=== PATIENT | male | born 1960 | race American Indian/Alaskan Native ===

== ENCOUNTER 2016-08-17 01:25 | Inpatient (IN) | payer MEDICARE ==
[2016-08-17] MEDS ORDERED: NACL 0.9% 1000 ML 1,000 ML ONE (01:43)
[2016-08-17] MEDS ORDERED: SandoSTATIN 500 MCG in NACL 0.9% 100 ML IV ONE (01:48)
[2016-08-17] MEDS ORDERED: PROTONIX IV ONE (01:48)
[2016-08-17] MEDS ORDERED: NACL 0.9% 1000 ML 1,000 ML IV ONE (01:56)
[2016-08-17] MEDS ORDERED: PROTONIX 80 MG in NACL 0.9% 100 ML IV SCH (02:00)
--- NOTE | 2016-08-17 02:12 | Emergency Department Report ---
HPI - General Chief Complaint: GI Bleed Time Seen by Provider: 08/17/16 01:47 - HPI HPI: Room 22 The patient is a 56-year-old male presenting with a chief complaint of hematemesis. The patient states his symptoms began at 20:00 with 3-4 episodes of bright red hematemesis. The patient states he then had a bowel movement in his stool was black. The patient has not vomited since coming to the ED. The patient has a history of hepatitis C and cirrhosis was admitted to the hospital recently by myself for paracentesis of ascites Location: Gastro-Intestinal system Duration: Started at 20:00 Quality: Hematemesis Severity: Moderate Modifying factors: [see above] Context: [see above] Mode of transportation: [not driving] ED Past Medical Hx - Past Medical History Previous Medical History?: Yes Hx Hypertension: Yes Hx CVA: Yes Hx Liver Disease: Yes (hep c and possible cirrhosis) Additional medical history: Sleep Apnea, PTSD. ETOH abuse. daily smoker - Surgical History Past Surgical History?: Yes Additional Surgical History: tonsillectomy. rt leg [id number] - Family History Family history: no significant - Social History Smoking Status: Current Every Day Smoker Substance Use Type: Alcohol, Prescribed - Medications Home Medications: Home Medications Medication Instructions Recorded Confirmed Last Taken Type Folic Acid [Folvite] 1 mg PO DAILY #30 tablet 07/28/16 08/12/16 08/11/16 Rx Megestrol Acetate [Megace] 400 mg PO DAILY #30 oral.susp 07/28/16 08/12/1608/11 Rx Mirtazapine 30 mg PO QHS #30 tablet 07/28/16 08/12/16 08/11/16 Rx NIFEdipine XL [Procardia Xl] 90 mg PO QDAY #30 tablet 07/28/16 08/12/16 Rx Polyethylene Glycol 3350 [Miralax 17 gm PO QDAY #30 powd.pack 07/28/16 08/12/16 08/11/16 Rx 3350] Potassium Chloride [K-Dur] 20 meq PO QDAY #30 tablet 07/28/16 08/12/16 08/11/16 Rx Sertraline HCl [Zoloft] 100 mg PO QDAY #30 tablet 07/28/16 08/12/16 08/11/16 Rx Spironolactone [Aldactone] 1 tab PO DAILY #30 tablet 07/28/16 08/12/16 08/11/16 Rx Trazodone HCl 100 mg PO QHS #30 tablet 07/28/16 08/12/16 08/11/16 Rx hydrOXYzine PAMOATE [Vistaril] 1 cap PO QHS #30 capsule 07/28/16 08/12/16 Rx Nicotine [Habitrol] 14 mg TD Q24H #21 patch 08/13/16 Unknown Rx oxyCODONE /ACETAMINOPHEN [Percocet 1 tab PO Q4HR #10 tab 08/13/16 Unknown Rx 5/325 mg] ED Review of Systems ROS: Stated complaint: VOMITING BLOOD Other details as noted in HPI Comment: All other systems reviewed and negative Constitutional: denies: chills, fever Eyes: denies: eye pain, eye discharge, vision change ENT: denies: ear pain, throat pain Respiratory: denies: cough, shortness of breath, wheezing Cardiovascular: denies: chest pain, palpitations Endocrine: no symptoms reported Gastrointestinal: nausea, vomiting, hematemesis, melena Genitourinary: denies: urgency, dysuria Musculoskeletal: denies: back pain, joint swelling, arthralgia Skin: denies: rash, lesions Neurological: denies: headache, weakness, paresthesias Psychiatric: denies: anxiety, depression Hematological/Lymphatic: denies: easy bleeding, easy bruising Physical Exam - Physical Exam Vital Signs: Vital Signs 08/17/16 08/17/16 08/17/16 01:35 01:39 01:45 Temperature 97.9 F Pulse Rate 99 H 100 H 101 H Respiratory 20 19 22 Rate Blood Pressure 85/52 95/45 Blood Pressure 85/52 [Left] O2 Sat by Pulse 100 100 100 Oximetry Physical Exam: GENERAL: The patient is well-developed well-nourished male lying on stretcher in position not appearing to be in acute distress. [] HEENT: Normocephalic. Atraumatic. Extraocular motions are intact. Patient has moist mucous membranes. NECK: Supple. Trachea midline CHEST/LUNGS: Clear to auscultation. There is no respiratory distress noted. HEART/CARDIOVASCULAR: Regular. There is no tachycardia. There is no gallop rub or murmur. ABDOMEN: Abdomen is soft, nontender. Patient has normal bowel sounds. SKIN: There is no rash. There is no diaphoresis. NEURO: The patient is awake, alert, and oriented. The patient is cooperative. The patient has normal speech MUSCULOSKELETAL: There is no evidence of acute injury. RECTAL: ED Course Vital Signs 08/17/16 08/17/16 08/17/16 01:35 01:39 01:45 Temperature 97.9 F Pulse Rate 99 H 100 H 101 H Respiratory 20 19 22 Rate Blood Pressure 85/52 95/45 Blood Pressure 85/52 [Left] O2 Sat by Pulse 100 100 100 Oximetry - Reevaluation(s) Reevaluation #1: 08/17/16 03:44 CBC has not been resulted yet. I discussed this with lab and they state that the sample was clotted. Phlebotomy was notified to redraw. I spoke to phlebotomy personally and expressed the urgent need for results. Phlebotomy en route to patient's room 08/17/16 04:16 After I go directly to lab when able to obtain the results of the redraw CBC which reveals an H&H of 4.9/16.0 08/17/16 04:26 Patient reportedly had an episode of hematemesis in the ED which appeared like coffee grounds. There was no bright red blood reported - Consultations Consultation #1: 08/17/16 04:16 GI paged 08/17/16 04:[address] Sanabria- states he will notify the GI lab ED Medical Decision Making - Lab Data Result diagrams: 08/17/16 03:41 08/17/16 02:17 Laboratory Tests 08/17/16 08/17/16 02:17 03:41 WBC 12.1 H RBC 1.89 L Hgb 4.9 L* Hct 16.0 L* MCV 85 MCH 26 L MCHC 31 L RDW 15.9 H Plt Count 192 Lymph % (Auto) 13.1 L [place] % (Auto) 10.4 H Eos % (Auto) 0.2 Baso % (Auto) 0.3 Lymph # 1.6 [place] # 1.3 H Eos # 0.0 Baso # 0.0 Seg Neutrophils % 76.0 H Seg Neutrophils # 9.2 H Sodium 135 L Potassium 5.5 H D Chloride 103.0 Carbon Dioxide 8 L* D Anion Gap 30 BUN 39 H Creatinine 1.7 H D Estimated GFR 50 BUN/Creatinine Ratio 22.94 Glucose 129 H Calcium 7.0 L Total Bilirubin 0.90 AST 39 ALT 21 Alkaline Phosphatase 41 Total Protein 5.2 L Albumin 1.8 L Albumin/Globulin Ratio 0.5 Lipase 17 - EKG Data -: EKG Interpreted by Me EKG shows normal: sinus rhythm Rate: normal - EKG Data When compared to previous EKG there are: previous EKG unavailable - Differential Diagnosis esophageal varices, upper GI bleed Critical Care Time: Yes Critical care time in (mins) excluding proc time.: 35 Critical care attestation.: If time is entered above; I have spent that time in minutes in the direct care of this critically ill patient, excluding procedure time. ED Disposition Clinical Impression: Upper GI bleed, Hypovolemic shock Disposition: OP ADMIT IP TO THIS HOSP Is pt being admited?: Yes Does the pt Need Aspirin: No Condition: Serious Referrals: PRIMARY CARE, [Primary Care Provider] - 3-5 Days Forms: Accompanied Note Time of Disposition: 04:25
[2016-08-17] MEDS ORDERED: ZOFRAN ONE (02:36)
[2016-08-17 03:08] LABS: Albumin 1.8 g/dL (3.9-5); Albumin/Globulin Ratio 0.5 %; BUN/Creatinine Ratio 22.94; Bilirubin,Total 0.9 mg/dL (0.1-1.2); Potassium 5.5 mmol/L (3.6-5.0); Total Protein 5.2 g/dL (6.3-8.2)
[2016-08-17 04:11] LABS: Basophils % (Auto) 0.3 % (0.0-1.8); Eosinophils % (Auto) 0.2 % (0.0-4.3); Mean Corpuscular HGB Conc 31 % (32-34); Mean Corpuscular Volume 85 fl (84-94); Platelet Count 192 K/mm3 (140-440); Red Blood Count 1.89 M/mm3 (3.65-5.03); Red Cell Distribution Width 15.9 % (13.2-15.2); White Blood Count 12.1 K/mm3 (4.5-11.0)
[2016-08-17 04:14] LABS: Hemoglobin 4.9 gm/dl (11.8-15.2)
[2016-08-17] MEDS ORDERED: NACL 0.9% 500 ML 500 ML IV ONE (04:14)
[2016-08-17 04:15] LABS: Mean Corpuscular Hemoglobin 26 pg (28-32)
[2016-08-17] MEDS ORDERED: ZOFRAN IV ONE ×2 (04:21→04:23)
[2016-08-17 04:38] LABS: INR 2.17 (0.87-1.13)
[2016-08-17] MEDS ORDERED: ZOFRAN IV PRN (05:09)
--- NOTE | 2016-08-17 05:23 | History and Physical Report ---
History of Present Illness Date of examination: 08/17/16 Date of admission: 08/17/16 Chief complaint: Chief complaint is hematemesis other complaint include abdominal pain and black stool History of present illness: History of present illness, patient is a 56-year-old male who has been having hematemesis since yesterday and also noticed dark stool but there was also history of abdominal pain and no history of dizziness and patient also complaining of shortness of breath. She and is known to abuse alcohol has history of cirrhosis of the liver but there is no history of fever or chills Past History Past Medical History: hypertension, stroke, other (HEPATITIS C, SLEEP APNEA, PTSD) Past Surgical History: tonsillectomy Social history: smoking, alcohol abuse Family history: no significant family history Medications and Allergies Allergies Allergy/AdvReac Type Severity Reaction Status Date / Time Penicillins Allergy Unknown Verified 06/21/14 18:05 Home Medications Medication Instructions Recorded Confirmed Last Taken Type Folic Acid [Folvite] 1 mg PO DAILY #30 tablet 07/28/16 08/12/16 08/11/16 Rx Megestrol Acetate [Megace] 400 mg PO DAILY #30 oral.susp 07/28/16 08/12/1608/11 Rx Mirtazapine 30 mg PO QHS #30 tablet 07/28/16 08/12/16 08/11/16 Rx NIFEdipine XL [Procardia Xl] 90 mg PO QDAY #30 tablet 07/28/16 08/12/16 Rx Polyethylene Glycol 3350 [Miralax 17 gm PO QDAY #30 powd.pack 07/28/16 08/12/16 08/11/16 Rx 3350] Potassium Chloride [K-Dur] 20 meq PO QDAY #30 tablet 07/28/16 08/12/16 08/11/16 Rx Sertraline HCl [Zoloft] 100 mg PO QDAY #30 tablet 07/28/16 08/12/16 08/11/16 Rx Spironolactone [Aldactone] 1 tab PO DAILY #30 tablet 07/28/16 08/12/16 08/11/16 Rx Trazodone HCl 100 mg PO QHS #30 tablet 07/28/16 08/12/16 08/11/16 Rx hydrOXYzine PAMOATE [Vistaril] 1 cap PO QHS #30 capsule 07/28/16 08/12/16 Rx Nicotine [Habitrol] 14 mg TD Q24H #21 patch 08/13/16 Unknown Rx oxyCODONE /ACETAMINOPHEN [Percocet 1 tab PO Q4HR #10 tab 08/13/16 Unknown Rx 5/325 mg] Active Meds: Active Medications Octreotide Acetate 500 mcg/ (Sodium Chloride) 101 mls @ 10.1 mls/hr IV ONCE.ED ONE; 50 MCG/HR PRN Reason: Protocol Stop: 08/17/16 11:47 Last Admin: 08/17/16 02:57 Dose: 25 mcg/hr, 5.05 mls/hr Pantoprazole Sodium 80 mg/ (Sodium Chloride) 100 mls @ 10 mls/hr IV DIRECT SAMUEL PRN Reason: 8 MG/HR Last Admin: 08/17/16 03:12 Dose: 8 mg/hr, 10 mls/hr Sodium Chloride (Nacl 0.9% 1000 Ml) 1,000 mls @ 125 mls/hr IV DIRECT SAMUEL Ondansetron HCl (Zofran) 4 mg IV Q4H PRN PRN Reason: Nausea And Vomiting Review of Systems Constitutional: no weight loss, no weight gain, no fever, no chills, no sweats, no anorexia, no fatigue, no weakness, no malaise, no lethargy, no poor appetite , no daytime sleepiness, no chronic pain Eyes: bilateral: other (NO BILATERAL EYE SYMPTOMS) Ears, nose, mouth and throat: no ear pain, no ear discharge, no decreased hearing, no nose pain, no nasal congestion, no nasal discharge, no sinus pressure, no bleeding gums, no dental pain, no mouth pain, no dysphagia, no hoarseness, no sore throat, no swelling in mouth, no swelling in throat, no voice changes, no post-nasal drip, no headache, no vertigo, no pain front of neck, no neck lump Cardiovascular: shortness of breath, no chest pain, no orthopnea, no palpitations, no rapid/irregular heart beat, no edema, no syncope, no lightheadedness, no dyspnea on exertion, no claudication, no phlebitis, no high blood pressure, no leg edema, no decreased exercise tolerance Respiratory: no cough, no cough with sputum, no excessive sputum, no hemoptysis , no shortness of breath, no congestion, no wheezing, no pleurisy, no pain, no pain on inspiration, no sleep apnea, no respiratory infections, no home oxygen Gastrointestinal: abdominal pain, nausea, hematemesis, melena, no jaundice, no dyspepsia/bloating, no lactose intolerance Genitourinary Male: no dysuria, no hematuria, no flank pain, no discharge, no urinary frequency, no urinary hesitancy, no impotence, no decreased libido, no testicular pain, no testicular lump, no polyuria, no urinary retention Rectal: no pain, no incontinence, no bleeding, no itching, no hemorrhoids, no discharge, no flatulence, no other Musculoskeletal: no neck stiffness, no neck pain, no shooting arm pain, no arm numbness/tingling, no low back pain, no shooting leg pain, no leg numbness/ tingling, no hot joints, no morning stiffness, no muscle weakness, no muscle cramps, no myalgias, no atrophy, no limitation of motion, no frequent falls, no fractures, no loss of height, no prior amputations Integumentary: no rash, no pruritis, no redness, no sores, no wounds, no jaundice, no boils, no blisters, no growths, no bullae, no lesions, no darkening of skin, no depigmentation, no acne, no dryness, no color changes, no change in hair/nails, no brittle nails, no striae, no hirsutism, no foot/leg ulcers, no onychomycosis Neurological: no paralysis, no weakness, no parathesias, no numbness, no tingling, no seizures, no syncope, no tremors, no ataxia, no headaches, no migraines, no convulsions, no aphasia, no change in speech, no change in mentation, no confusion, no memory loss, no gait dysfunction, no motor disturbance, no sensory deficit, no double vision, no loss of vision, no hearing difficulties, no burning pain, no paralysis, no spasticity Psychiatric: no anxiety, no memory loss, no change in sleep habits, no sleep disturbances, no insomnia, no hypersomnia, no change in appetite, no change in libido, no suicidal ideation, no disorientation, no paranoia, no depression, no hopelessness, no anhedonia, no anxiety attacks, no difficulties concentrating, no confusion, no irritability, no sadness/tearfullness, no mood swings Endocrine: no cold intolerance, no heat intolerance, no polyphagia, no excessive thirst, no polydipsia, no polyuria, no nocturia, no excessive sweating , no flushing, no increase in ring/shoe/hat size, no proptosis, no deepening of the voice, no thyroid mass, no palpatations, no high blood sugars, no low blood sugars Hematologic/Lymphatic: no easy bruising, no easy bleeding, no lymphadenopathy, no lymphedema, no thrombophilia Allergic/Immunologic: no urticaria, no allergic rhinitis, no persistent infections, no anaphylaxis, no gluten intolerance, no seasonal allergies Exam - Constitutional Vitals: Temp Pulse Resp BP Pulse Ox 97.4 F L 90 18 80/44 100 08/17/16 05:14 08/17/16 05:14 08/17/16 05:14 08/17/16 05:14 08/17/16 05:14 General appearance: Present: mild distress - EENT Eyes: Present: PERRL, EOM intact. Absent: irregular pupil, conjunctival injection, mydriasis ENT: hearing intact, clear oral mucosa, no oropharyngeal erythema, no poor dentition, no edentulous - Neck Neck: Present: supple, normal ROM. Absent: enlarged thyroid, masses or JVD, carotid bruits - Respiratory Respiratory effort: normal - Cardiovascular Rhythm: regular Heart Sounds: Present: S1 & S2. Absent: gallop, systolic murmur, diastolic murmur, rub, click - Extremities Extremities: no ischemia, No edema Peripheral Pulses: within normal limits - Abdominal General gastrointestinal: Present: soft, tender, distended, normal bowel sounds. Absent: non-tender, non-distended, rigid, hepatomegaly, splenomegaly, mass, hernia Localized gastrointestinal: tender: diffuse Male genitourinary: Present: deferred - Rectal Rectal Exam: deferred - Integumentary Integumentary: Present: clear, warm, dry, normal turgor. Absent: erythema, jaundice, rash, clammy - Musculoskeletal Musculoskeletal: strength equal bilaterally - Psychiatric Psychiatric: appropriate mood/affect - Neurologic Neurologic: CNII-XII intact Results - Labs CBC & Chem 7: 08/17/16 03:41 08/17/16 02:17 Labs: Laboratory Last Values WBC 12.1 K/mm3 (4.5-11.0) H 08/17/16 03:41 RBC 1.89 M/mm3 (3.65-5.03) L 08/17/16 03:41 Hgb 4.9 gm/dl (11.8-15.2) L* 08/17/16 03:41 Hct 16.0 % (35.5-45.6) L* 08/17/16 03:41 MCV 85 fl (84-94) 08/17/16 03:41 MCH 26 pg (28-32) L 08/17/16 03:41 MCHC 31 % (32-34) L 08/17/16 03:41 RDW 15.9 % (13.2-15.2) H 08/17/16 03:41 Plt Count 192 K/mm3 (140-440) 08/17/16 03:41 Lymph % (Auto) 13.1 % (13.4-35.0) L 08/17/16 03:41 [place] % (Auto) 10.4 % (0.0-7.3) H 08/17/16 03:41 Eos % (Auto) 0.2 % (0.0-4.3) 08/17/16 03:41 Baso % (Auto) 0.3 % (0.0-1.8) 08/17/16 03:41 Lymph # 1.6 K/mm3 (1.2-5.4) 08/17/16 03:41 [place] # 1.3 K/mm3 (0.0-0.8) H 08/17/16 03:41 Eos # 0.0 K/mm3 (0.0-0.4) 08/17/16 03:41 Baso # 0.0 K/mm3 (0.0-0.1) 08/17/16 03:41 Seg Neutrophils % 76.0 % (40.0-70.0) H 08/17/16 03:41 Seg Neutrophils # 9.2 K/mm3 (1.8-7.7) H 08/17/16 03:41 PT 24.2 Sec. (12.2-14.9) H 08/17/16 03:41 INR 2.17 (0.87-1.13) H 08/17/16 03:41 APTT 35.0 Sec. (24.2-36.6) 08/17/16 03:41 Sodium 135 mmol/L (137-145) L 08/17/16 02:17 Potassium 5.5 mmol/L (3.6-5.0) H D 08/17/16 02:17 Chloride 103.0 mmol/L (98-107) 08/17/16 02:17 Carbon Dioxide 8 mmol/L (22-30) L* D 08/17/16 02:17 Anion Gap 30 mmol/L 08/17/16 02:17 BUN 39 mg/dL (9-20) H 08/17/16 02:17 Creatinine 1.7 mg/dL (0.8-1.5) H D 08/17/16 02:17 Estimated GFR 50 ml/min 08/17/16 02:17 BUN/Creatinine Ratio 22.94 % 08/17/16 02:17 Glucose 129 mg/dL (75-100) H 08/17/16 02:17 Calcium 7.0 mg/dL (8.4-10.2) L 08/17/16 02:17 Total Bilirubin 0.90 mg/dL (0.1-1.2) 08/17/16 02:17 AST 39 units/L (5-40) 08/17/16 02:17 ALT 21 units/L (7-56) 08/17/16 02:17 Alkaline Phosphatase 41 units/L (35-129) 08/17/16 02:17 Total Protein 5.2 g/dL (6.3-8.2) L 08/17/16 02:17 Albumin 1.8 g/dL (3.9-5) L 08/17/16 02:17 Albumin/Globulin Ratio 0.5 % 08/17/16 02:17 Lipase 17 units/L (13-60) 08/17/16 02:17 Blood Type O POSITIVE 08/17/16 03:54 Antibody Screen TNR 08/17/16 03:54 KRISTIN Antibody Screen Negative 08/17/16 03:54 Crossmatch See Detail 08/17/16 03:54 Assessment and Plan - Patient Problems (1) Anemia Current Visit: Yes Status: Acute Qualifiers: Anemia type: A Iron deficiency anemia type: I Vitamin B12 deficiency anemia type: V Folate deficiency anemia type: F Bone marrow failure anemia type: B Hemolytic anemia type: H Other causes of anemia: O Chronic kidney disease stage: C (2) Upper GI bleed Current Visit: Yes Status: Acute Plan to address problem: Patient will be admitted to ICU and will remain nothing by mouth for possible endoscopy by the consulting business management professor Dr. Sanabria this morning, patient will continue IV Protonix drip which was started in the emergency room. Patient will have hemoglobin and hematocrit checked every 6 hours 4 levels and will be on IV normal saline at 125 minutes an hour until the transfusion of packed red blood cell is started. Patient will also continue IV octreotide started in the emergency room until evaluated by the business management professor, patient will be on oxygen by nasal cannula at 2 L/m. (3) Abdominal pain in male Current Visit: No Status: Acute (4) Alcohol abuse Current Visit: No Status: Acute
[2016-08-17] MEDS ORDERED: NACL 0.9% 1000 ML 1,000 ML IV SCH (06:00)
[2016-08-17] MEDS ORDERED: WATER FOR IRRIG STERILE IR ONE (06:03)
--- NOTE | 2016-08-17 06:55 | Anesthesia Consultation ---
Anesthesia Consult and Med Hx Date of service: 08/17/16 - Airway Anesthetic Teeth Evaluation: Good ROM Head & Neck: Adequate Mental/Hyoid Distance: Adequate Mallampati Class: Class II Intubation Access Assessment: Probably Good - Pulmonary Exam CTA: Yes - Cardiac Exam Cardiac Exam: RRR - Pre-Operative Health Status ASA Pre-Surgery Classification: ASA3, Emergency Proposed Anesthetic Plan: General, MAC - Pulmonary Hx Smoking: Yes Hx Asthma: No COPD: No Hx Pneumonia: No - Cardiovascular System Hx Hypertension: Yes - Endocrine Hx Renal Disease: Yes (ARF, CR 1.7) Hx End Stage Renal Disease: No Hx Cirrhosis: Yes Hx Liver Disease: Yes (HEP C) - Hematic Hx Anemia: Yes (GI BLEED) - Other Systems Hx Cancer: No Hx Obesity: No - Additional Comments Anesthesia Medical History Comments: POTASSIUM 5.5, RECEIVED 2 UNITS RBCS FOR ANEMIA. WILL RECEIVE 1 UNIT FFP FOR ELEVATED INR.
[2016-08-17] MEDS ORDERED: DIPRIVAN 10 MG/ML IV ONE ×2 (06:58)
--- NOTE | 2016-08-17 07:34 | Admit Criteria Form ---
Admission Criteria Documentation: GASTROINTESTINAL BLEEDING, UPPER Clinical Indications for Admission to Inpatient Care ( Place 'X' for any and all applicable criteria): Admission is indicated for ANY ONE of the following(1)(2)(3)(4)(5)(6): [X]I. Active bleeding (eg, fresh voluminous blood in emesis or nasogastric aspirate) [ ]II. Associated conditions requiring hospitalization (eg, perforation, obstruction from ulcer) [ ]III. Inpatient admission required rather than observation care (Also use Gastrointestinal Bleeding, Upper: Observation Care as appropriate) because of ANY ONE of the following: [ ]a) Hemodynamic instability that is severe or persistent [ ]b) Anemia requiring inpatient admission as indicated by ALL of the following: [ ]1) Presence of significant clinical finding indicated by ANY ONE of the following: [ ]A. Tachycardia for age [ ]B. Orthostatic vital sign changes [ ]C. Cognitive impairment [ ]D. Heart failure [ ]E. Chest pain [ ]F. Exertional dyspnea [ ]G. Other findings suggesting inadequate perfusion (eg, peripheral or myocardial ischemia, end organ dysfunction) [ ]2) Initial (eg, emergency department, observation care) treatment with transfusion or volume replacement is judged inappropriate (due to severity of the finding) or has been ineffective [ ]c) Severe pain requiring acute inpatient management [ ]d) High-risk low platelet count [ ]e) IV fluid to replace significant ongoing losses (greater than 3 L/m2 per day) [ ]f) Immediate inpatient surgery [ ]g) Other condition, treatment or monitoring requiring inpatient admission [ ]IV. Severe liver disease (eg, cirrhosis) [ ]V. Significant active comorbid disease [ ]. Anticoagulation therapy [ ]VII. High-risk endoscopic features (arterial bleeding, adherent clot, nonbleeding visible vessel, varices, flat red spots, ulcer size greater than 2 cm, or portal hypertensive gastropathy) [ ]VIII. Previous aortic graft placement or known aortic aneurysm [ ]IX. Coagulopathy [ ]X. Syncope Extended stay beyond goal length of stay may be needed for(1)(2): [ ]a) Emergency surgery [ ]b) Varices [ ]c) Coagulation abnormalities [ ]d) Recurrent, obscure, or persistent bleeding or continued Hemodynamic instability [ ]e) Associated conditions requiring surgery (eg, perforated gastric ulcer, gastric outlet obstruction) [ ]f) Active comorbidities (eg, renal insufficiency, heart failure, pre- existing liver disease) The original [facility] [employer] content created by [facility] has been revised. The portions of the content which have been revised are identified through the use of italic text or in bold, and [facility] has neither reviewed nor approved the modified material. All other unmodified content is copyright [facility] [id number]. Please see references footnoted in the original [facility] [id number] edition 2016 Admission Criteria Met: Yes
--- NOTE | 2016-08-17 07:48 | Consultation ---
History of Present Illness - Reason for Consult Consult date: 08/17/16 Hematemesis - History of Present Illness 56 yo BM with hx of HCV, cirrhosis, and EtOH abuse which he states he quit 1 month ago. Pt was admitted recently and underwent his first paracentesis. He notes his abd has felt a little tight. He was o/w well until early this AM, when he developed hematemesis, and then had a black BM. He has had 3 episodes of hematemesis, none x 3-4 hours. No further BMs. He denies prior hx of GI bleed. No abd pain. No hx of ASA/NSAID use. BMs usu regular, qd, no change. No F/C/NS, CP, SOB. In ER, pt has received 2u pRBC, and 2u FFP. Past History Past Medical History: hypertension, stroke, other (HEPATITIS C, SLEEP APNEA, PTSD) Past Surgical History: tonsillectomy Social history: smoking, alcohol abuse Family history: no significant family history Medications and Allergies Allergies Allergy/AdvReac Type Severity Reaction Status Date / Time Penicillins Allergy Unknown Verified 06/21/14 18:05 Home Medications Medication Instructions Recorded Confirmed Last Taken Type Folic Acid [Folvite] 1 mg PO DAILY #30 tablet 07/28/16 08/17/16 08/11/16 Rx Megestrol Acetate [Megace] 400 mg PO DAILY #30 oral.susp 07/28/16 08/17/1608/11 Rx Mirtazapine 30 mg PO QHS #30 tablet 07/28/16 08/17/16 08/11/16 Rx NIFEdipine XL [Procardia Xl] 90 mg PO QDAY #30 tablet 07/28/16 08/17/16 Rx Polyethylene Glycol 3350 [Miralax 17 gm PO QDAY #30 powd.pack 07/28/16 08/17/16 08/11/16 Rx 3350] Potassium Chloride [K-Dur] 20 meq PO QDAY #30 tablet 07/28/16 08/17/16 08/11/16 Rx Sertraline HCl [Zoloft] 100 mg PO QDAY #30 tablet 07/28/16 08/17/16 08/11/16 Rx Spironolactone [Aldactone] 1 tab PO DAILY #30 tablet 07/28/16 08/17/16 08/11/16 Rx Trazodone HCl 100 mg PO QHS #30 tablet 07/28/16 08/17/16 08/11/16 Rx hydrOXYzine PAMOATE [Vistaril] 1 cap PO QHS #30 capsule 07/28/16 08/17/16 Rx Nicotine [Habitrol] 14 mg TD Q24H #21 patch 08/13/16 08/17/16 Unknown Rx oxyCODONE /ACETAMINOPHEN [Percocet 1 tab PO Q4HR #10 tab 08/13/16 08/17/16 Unknown Rx 5/325 mg] Active Meds: Active Medications Octreotide Acetate 500 mcg/ (Sodium Chloride) 101 mls @ 10.1 mls/hr IV ONCE.ED ONE; 50 MCG/HR PRN Reason: Protocol Stop: 08/17/16 11:47 Last Admin: 08/17/16 02:57 Dose: 25 mcg/hr, 5.05 mls/hr Pantoprazole Sodium 80 mg/ (Sodium Chloride) 100 mls @ 10 mls/hr IV DIRECT SAMUEL PRN Reason: 8 MG/HR Last Admin: 08/17/16 03:12 Dose: 8 mg/hr, 10 mls/hr Sodium Chloride (Nacl 0.9% 1000 Ml) 1,000 mls @ 125 mls/hr IV DIRECT SAMUEL Ondansetron HCl (Zofran) 4 mg IV Q4H PRN PRN Reason: Nausea And Vomiting Review of Systems All systems: negative (as noted in HPI) Exam - Constitutional Vitals: Temp Pulse Resp BP Pulse Ox 97.7 F 91 H 19 106/52 100 08/17/16 06:15 08/17/16 06:45 08/17/16 06:45 08/17/16 06:45 08/17/16 06:45 General appearance: Present: no acute distress - EENT Eyes: Present: PERRL, EOM intact ENT: hearing intact, clear oral mucosa - Respiratory Respiratory effort: normal Respiratory: bilateral: CTA - Cardiovascular Rhythm: regular Heart Sounds: Present: S1 & S2 - Extremities Extremities: No edema - Abdominal General gastrointestinal: Present: soft, non-tender, distended (Mildly), normal bowel sounds - Rectal Rectal Exam: deferred Results - Labs CBC & Chem 7: 08/17/16 03:41 08/17/16 02:17 Assessment and Plan 1. Hematemesis - c/w variceal bleed vs. PUD. Pt on octreotide and PPI drip. - emergency EGD to dx and tx. 2. 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
--- NOTE | 2016-08-17 07:51 | Anesthesia Day of Surgery ---
Anesthesia Day of Surgery - Day of Surgery Patient Examined: Yes Patient H&P Reviewed: Yes Patient is NPO: Yes
--- NOTE | 2016-08-17 07:51 | Post Anesthesia Evaluation ---
- Post Anesthesia Evaluation Patient Participated: Yes Airway Patent: Yes Stable Respiratory Function: Yes Nausea/Vomiting: No Temp > 96.8F: Yes Pain Manageable: Yes Adequeate Hydration: Yes Anesthesia Complications: No Block Receding Appropriately: Not Applicable Patient on Ventilator: No
--- NOTE | 2016-08-17 08:02 | Post Operative Note ---
Pre-op diagnosis: Hematemesis Post-op diagnosis: other (Esophageal varices with stigmata of bleeding) Findings: 1. Distal esophageal varices, 3+, one with a fibrin plug located on it. No active bleeding. 4 variceal bands applied. 2. Normal gastric antrum and duodenum. 3. Remainder of body not visualized due to presence of old blood and clot in stomach. Procedure: EGD with variceal banding Anesthesia: MAC Surgeon: KRISTIN URBINA Estimated blood loss: none Pathology: none Condition: stable Disposition: ICU (Continue octreotide drip for 48 hrs, monitor H/H and support as needed.)
[2016-08-17] MEDS ORDERED: MIRALAX 3350 PO PRN (10:50)
[2016-08-17] MEDS ORDERED: VITAMIN K *ORAL LIQUID PO SCH (11:00)
--- NOTE | 2016-08-17 11:13 | Consultation ---
History of Present Illness - Reason for Consult Consult date: 08/17/16 Variceal Bleed Requesting physician: KRISTIN URBINA - History of Present Illness 56 y/o male with known Hep C, cirrhosis and ETOH abuse, recently found to have ascities admitted with GI bleed. Scoped this am and found to have varices. None actively bleeding. 4 of them banded. Transfer to ICU for further monitoring. Past History Past Medical History: hypertension, stroke, other (HEPATITIS C, SLEEP APNEA, PTSD) Past Surgical History: tonsillectomy Social history: smoking, alcohol abuse Family history: no significant family history Medications and Allergies Allergies Allergy/AdvReac Type Severity Reaction Status Date / Time Penicillins Allergy Unknown Verified 06/21/14 18:05 Home Medications Medication Instructions Recorded Confirmed Last Taken Type Folic Acid [Folvite] 1 mg PO DAILY #30 tablet 07/28/16 08/17/16 08/11/16 Rx Megestrol Acetate [Megace] 400 mg PO DAILY #30 oral.susp 07/28/16 08/17/1608/11 Rx Mirtazapine 30 mg PO QHS #30 tablet 07/28/16 08/17/16 08/11/16 Rx NIFEdipine XL [Procardia Xl] 90 mg PO QDAY #30 tablet 07/28/16 08/17/16 Rx Polyethylene Glycol 3350 [Miralax 17 gm PO QDAY #30 powd.pack 07/28/16 08/17/16 08/11/16 Rx 3350] Potassium Chloride [K-Dur] 20 meq PO QDAY #30 tablet 07/28/16 08/17/16 08/11/16 Rx Sertraline HCl [Zoloft] 100 mg PO QDAY #30 tablet 07/28/16 08/17/16 08/11/16 Rx Spironolactone [Aldactone] 1 tab PO DAILY #30 tablet 07/28/16 08/17/16 08/11/16 Rx Trazodone HCl 100 mg PO QHS #30 tablet 07/28/16 08/17/16 08/11/16 Rx hydrOXYzine PAMOATE [Vistaril] 1 cap PO QHS #30 capsule 07/28/16 08/17/16 Rx Nicotine [Habitrol] 14 mg TD Q24H #21 patch 08/13/16 08/17/16 Unknown Rx oxyCODONE /ACETAMINOPHEN [Percocet 1 tab PO Q4HR #10 tab 08/13/16 08/17/16 Unknown Rx 5/325 mg] Active Meds: Active Medications Famotidine (Pepcid) 20 mg IV DAILY [facility] Folic Acid (Folvite) 1 mg PO DAILY [facility] Hydroxyzine Pamoate (Vistaril) 25 mg PO QHS [facility] Octreotide Acetate 500 mcg/ (Sodium Chloride) 101 mls @ 10.1 mls/hr IV ONCE.ED ONE; 50 MCG/HR PRN Reason: Protocol Stop: 08/17/16 11:47 Last Admin: 08/17/16 02:57 Dose: 25 mcg/hr, 5.05 mls/hr Sodium Chloride (Nacl 0.9% 1000 Ml) 1,000 mls @ 50 mls/hr IV DIRECT SAMUEL Megestrol Acetate (Megace) 400 mg PO QDAY [facility] Mirtazapine (Remeron) 30 mg PO QHS [facility] Miscellaneous Medication (Trazodone Hcl [Trazodone Hcl]) 100 mg PO QHS [facility] Nicotine (Habitrol) 14 mg TD Q24H [facility] Ondansetron HCl (Zofran) 4 mg IV Q4H PRN PRN Reason: Nausea And Vomiting Oxycodone/Acetaminophen (Percocet 5/325) 1 tab PO Q4HR [facility] Phytonadione (Vitamin K *Oral Liquid*) 10 mg PO Q24H [facility] Stop: 08/19/16 11:01 Polyethylene Glycol (Miralax 3350) 17 gm PO QDAY PRN PRN Reason: Constipation Sertraline HCl (Zoloft) 100 mg PO DAILY [facility] Exam - Constitutional Vitals: Temp Pulse Resp BP Pulse Ox 98.4 F 92 H 18 123/56 100 08/17/16 08:43 08/17/16 08:43 08/17/16 08:43 08/17/16 08:43 08/17/16 08:43 Results - Labs CBC & Chem 7: 08/17/16 03:41 08/17/16 02:17 Assessment and Plan 56 y/o male with known Hep C, Cirrhosis, ascities now with Upper GI bleed, varices found and banded. 1. q6 hour H/H's 2. Suggest transfusion for Hemoglobin less than 7 3. At least 3 peripheral IV's 4. Octreotide drip 5. Hold on CIWA for now, await and see patient symptoms. Per report quit 30 days ago CCT 31 minutes
[2016-08-17 12:37] LABS: Hemoglobin 6.2 gm/dl (11.8-15.2)
[2016-08-17 13:02] LABS: Hematocrit 19.7 % (35.5-45.6)
[2016-08-17] MEDS ORDERED: NACL 0.9% 500 ML 500 ML IV NR (14:00)
[2016-08-17] MEDS: PERCOCET 5/325 PO SCH ×4 (15:49→21:45)
[2016-08-17] MEDS: PEPCID IV SCH (16:00)
[2016-08-17] MEDS: HABITROL TD SCH (16:40)
[2016-08-17] MEDS: VITAMIN K (ADULT ONLY) SUB-Q SCH (18:55)
[2016-08-17] MEDS: NACL 0.9% 500 ML 500 ML IV ONE ×2 (18:56→19:07)
[2016-08-17] MEDS: NACL 0.9% 1000 ML 1,000 ML IV SCH (19:03)
[2016-08-17] MEDS: VISTARIL PO SCH (21:44)
[2016-08-17] MEDS: REMERON PO SCH (21:45)
[2016-08-17] MEDS: DESYREL PO SCH (21:45)
[2016-08-18] MEDS: PERCOCET 5/325 PO SCH ×2 (01:45→05:48)
[2016-08-18 04:14] LABS: BUN/Creatinine Ratio 34.61; Blood Urea Nitrogen 45 mg/dL (9-20); Carbon Dioxide 16 mmol/L (22-30); Chloride 108.4 mmol/L (98-107); Glucose 102 mg/dL (75-100); Potassium 4.6 mmol/L (3.6-5.0); Sodium 140 mmol/L (137-145)
[2016-08-18 04:15] LABS: INR 1.85 (0.87-1.13)
[2016-08-18 04:30] LABS: Anion Gap 20 mmol/L
[2016-08-18] MEDS ORDERED: PERCOCET 5/325 PO PRN (07:41)
[2016-08-18 08:02] LABS: Basophils % (Auto) 0.4 % (0.0-1.8); Eosinophils % (Auto) 1.3 % (0.0-4.3); Hematocrit 22.1 % (35.5-45.6); Mean Corpuscular HGB Conc 32 % (32-34); Mean Corpuscular Hemoglobin 27 pg (28-32); Mean Corpuscular Volume 84 fl (84-94); Platelet Count 106 K/mm3 (140-440); Red Blood Count 2.63 M/mm3 (3.65-5.03); Red Cell Distribution Width 16.6 % (13.2-15.2); White Blood Count 9.4 K/mm3 (4.5-11.0)
[2016-08-18 08:03] LABS: Hematocrit 21.8 % (35.5-45.6); Hemoglobin 7.1 gm/dl (11.8-15.2)
[2016-08-18] MEDS: NACL 0.9% 1000 ML 1,000 ML IV SCH (08:18)
[2016-08-18] MEDS ORDERED: NACL 0.9% 500 ML 500 ML IV ONE (08:41)
--- NOTE | 2016-08-18 09:56 | Progress Note ---
Assessment and Plan 56 y/o male with known Hep C, Cirrhosis, ascities now with Upper GI bleed, varices found and banded. 1. Transfuse 2 units. 2. Suggest transfusion for Hemoglobin less than 7 3. At least 3 peripheral IV's 4. Octreotide drip, will discontinue at will of GI 5. Hold on CIWA for now, await and see patient symptoms. Per report quit 30 days ago 6. Pending GI evaluation could consider transfer back to floor. CCT 31 minutes Subjective Date of service: 08/18/16 Interval history: No acute events. No further episodes of bloody emesis. Hgb is 7.0 this am. Had 3 units of PRBC's. No family at bedside. Objective - Constitutional Vitals: Vital Signs - 12hr 08/17/16 08/17/16 08/17/16 21:50 22:00 22:10 Temperature Pulse Rate 80 83 83 Respiratory 18 14 11 L Rate Blood Pressure 123/69 116/56 116/56 O2 Sat by Pulse 100 97 99 Oximetry 08/17/16 08/17/16 08/17/16 22:20 22:30 22:40 Temperature Pulse Rate 84 87 88 Respiratory 17 12 12 Rate Blood Pressure 121/60 113/54 113/54 O2 Sat by Pulse 99 100 100 Oximetry 08/17/16 08/17/16 08/17/16 22:50 23:00 23:10 Temperature Pulse Rate 87 86 91 H Respiratory 17 14 15 Rate Blood Pressure 109/58 110/54 110/54 O2 Sat by Pulse 100 100 98 Oximetry 08/17/16 08/17/16 08/17/16 23:20 23:30 23:40 Temperature Pulse Rate 91 H 96 H 100 H Respiratory 13 14 14 Rate Blood Pressure 110/54 110/54 135/77 O2 Sat by Pulse 99 100 99 Oximetry 08/17/16 08/18/16 08/18/16 23:50 00:00 00:10 Temperature Pulse Rate 98 H 101 H 103 H Respiratory 15 16 17 Rate Blood Pressure 114/57 120/73 120/73 O2 Sat by Pulse 100 100 100 Oximetry 08/18/16 08/18/16 08/18/16 00:16 00:20 00:30 Temperature 99.3 F Pulse Rate 102 H 98 H Respiratory 16 14 Rate Blood Pressure 125/78 129/62 O2 Sat by Pulse 100 100 Oximetry 08/18/16 08/18/16 08/18/16 00:40 00:50 01:00 Temperature Pulse Rate 101 H 96 H 97 H Respiratory 15 14 15 Rate Blood Pressure 129/62 131/69 117/59 O2 Sat by Pulse 100 99 99 Oximetry 08/18/16 08/18/16 01:10 04:31 Temperature 99.4 F Pulse Rate 96 H Respiratory 15 Rate Blood Pressure 117/59 O2 Sat by Pulse 99 Oximetry General appearance: Present: no acute distress - EENT Eyes: PERRL - Neck Neck: supple, normal ROM - Respiratory Respiratory effort: normal Respiratory: bilateral: CTA - Cardiovascular Rhythm: regular Heart Sounds: Present: S1 & S2 Extremities: no ischemia - Gastrointestinal General gastrointestinal: Present: soft, non-tender, normal bowel sounds Rectal Exam: deferred - Labs CBC & Chem 7: 08/18/16 07:51 08/18/16 02:50 Labs: Abnormal lab results 08/17/16 08/18/16 08/18/16 Range/Units 12:21 02:50 02:50 RBC (3.65-5.03) M/mm3 Hgb 6.2 L (11.8-15.2) gm/dl Hct 19.7 L* (35.5-45.6) % MCH (28-32) pg RDW (13.2-15.2) % Plt Count (140-440) K/mm3 Lymph % (Auto) (13.4-35.0) % [place] % (Auto) (0.0-7.3) % Seg Neutrophils % (40.0-70.0) % PT 21.3 H (12.2-14.9) Sec. INR 1.85 H (0.87-1.13) Chloride 108.4 H (98-107) mmol/L Carbon Dioxide 16 L D (22-30) mmol/L BUN 45 H (9-20) mg/dL Glucose 102 H (75-100) mg/dL Calcium 7.0 L (8.4-10.2) mg/dL 08/18/16 08/18/16 Range/Units 07:51 07:51 RBC 2.63 L (3.65-5.03) M/mm3 Hgb 7.1 L 7.0 L (11.8-15.2) gm/dl Hct 21.8 L 22.1 L (35.5-45.6) % MCH 27 L (28-32) pg RDW 16.6 H (13.2-15.2) % Plt Count 106 L (140-440) K/mm3 Lymph % (Auto) 12.3 L (13.4-35.0) % [place] % (Auto) 8.5 H (0.0-7.3) % Seg Neutrophils % 77.5 H (40.0-70.0) % PT (12.2-14.9) Sec. INR (0.87-1.13) Chloride (98-107) mmol/L Carbon Dioxide (22-30) mmol/L BUN (9-20) mg/dL Glucose (75-100) mg/dL Calcium (8.4-10.2) mg/dL
[2016-08-18] MEDS ORDERED: SandoSTATIN 500 MCG in NACL 0.9% 100 ML IV SCH (10:00)
--- NOTE | 2016-08-18 10:08 | Gastroenterology Progress Note ---
<TE CROCKETT - Last Filed: 08/18/16 10:09> Assessment and Plan 1. hematemesis 2. cirrhosis- due to HCV -HGB- 7 this am s/p transfusion of 3 units yesterday -pending 2 units to be transfused today -no episodes of active bleeding overnight or this morning per pt and nursing -s/p EGD revealing esophageal varices w/ stigmata of bleeding- 4 variceal bands applied -continue to trend H&H and transfuse at needed -continue octreotide gtt and PPI -will follow Subjective Date of service: 08/18/16 Principal diagnosis: hematemesis Interval history: Patient resting in bed with eyes closed, easily aroused. No acute distress. No active signs of bleeding over night or this morning per pt and nursing. Objective - Constitutional Vitals: Temp Pulse Resp BP Pulse Ox 99.4 F 96 H 15 117/59 99 08/18/16 04:31 08/18/16 01:10 08/18/16 01:10 08/18/16 01:10 08/18/16 01:10 General appearance: no acute distress - EENT Eyes: PERRL, EOM intact ENT: hearing intact - Respiratory Respiratory: bilateral: CTA - Cardiovascular Rhythm: regular Heart Sounds: Present: S1 & S2 - Extremities Extremities: No edema - Gastrointestinal General gastrointestinal: Present: soft, non-tender, distended, normal bowel sounds - Integumentary Integumentary: Present: warm, dry - Neurologic Neurological: oriented to person - Psychiatric Psychiatric: appropriate mood/affect, cooperative - Labs CBC & Chem 7: 08/18/16 07:51 08/18/16 02:50 Labs: Laboratory Results - last 24 hr 08/17/16 08/18/16 08/18/16 12:21 02:50 02:50 WBC RBC Hgb 6.2 L Hct 19.7 L* MCV MCH MCHC RDW Plt Count Lymph % (Auto) [place] % (Auto) Eos % (Auto) Baso % (Auto) Lymph # [place] # Eos # Baso # Seg Neutrophils % Seg Neutrophils # PT 21.3 H INR 1.85 H Sodium 140 Potassium 4.6 Chloride 108.4 H Carbon Dioxide 16 L D Anion Gap 20 BUN 45 H Creatinine 1.3 Estimated GFR > 60 BUN/Creatinine Ratio 34.61 Glucose 102 H Calcium 7.0 L 08/18/16 08/18/16 07:51 07:51 WBC 9.4 RBC 2.63 L Hgb 7.1 L 7.0 L Hct 21.8 L 22.1 L MCV 84 MCH 27 L MCHC 32 RDW 16.6 H Plt Count 106 L Lymph % (Auto) 12.3 L [place] % (Auto) 8.5 H Eos % (Auto) 1.3 Baso % (Auto) 0.4 Lymph # 1.2 [place] # 0.8 Eos # 0.1 Baso # 0.0 Seg Neutrophils % 77.5 H Seg Neutrophils # 7.3 PT INR Sodium Potassium Chloride Carbon Dioxide Anion Gap BUN Creatinine Estimated GFR BUN/Creatinine Ratio Glucose Calcium <KRISTIN URBINA R - Last Filed: 08/18/16 15:36> Assessment and Plan Pt somewhat drowsy though does awake. Doubt impending DTs if no EtOH x > 1 wk at home. Decrease pain meds. O/w as above. Objective - Constitutional Vitals: Temp Pulse Resp BP Pulse Ox 99.4 F 84 11 L 107/52 98 08/18/16 04:31 08/18/16 13:00 08/18/16 13:00 08/18/16 13:00 08/18/16 13:00 - Labs CBC & Chem 7: 08/18/16 07:51 08/18/16 02:50 Labs: Laboratory Results - last 24 hr 08/18/16 08/18/16 08/18/16 02:50 02:50 07:51 WBC RBC Hgb 7.1 L Hct 21.8 L MCV MCH MCHC RDW Plt Count Lymph % (Auto) [place] % (Auto) Eos % (Auto) Baso % (Auto) Lymph # [place] # Eos # Baso # Seg Neutrophils % Seg Neutrophils # PT 21.3 H INR 1.85 H Sodium 140 Potassium 4.6 Chloride 108.4 H Carbon Dioxide 16 L D Anion Gap 20 BUN 45 H Creatinine 1.3 Estimated GFR > 60 BUN/Creatinine Ratio 34.61 Glucose 102 H Calcium 7.0 L 08/18/16 07:51 WBC 9.4 RBC 2.63 L Hgb 7.0 L Hct 22.1 L MCV 84 MCH 27 L MCHC 32 RDW 16.6 H Plt Count 106 L Lymph % (Auto) 12.3 L [place] % (Auto) 8.5 H Eos % (Auto) 1.3 Baso % (Auto) 0.4 Lymph # 1.2 [place] # 0.8 Eos # 0.1 Baso # 0.0 Seg Neutrophils % 77.5 H Seg Neutrophils # 7.3 PT INR Sodium Potassium Chloride Carbon Dioxide Anion Gap BUN Creatinine Estimated GFR BUN/Creatinine Ratio Glucose Calcium
[2016-08-18] MEDS: FOLVITE PO SCH (10:42)
[2016-08-18] MEDS: HABITROL TD SCH (10:42)
[2016-08-18] MEDS: ZOLOFT PO SCH (10:42)
[2016-08-18] MEDS: PEPCID IV SCH (10:42)
[2016-08-18] MEDS: VITAMIN K (ADULT ONLY) SUB-Q SCH (10:43)
[2016-08-18] MEDS: MEGACE PO SCH (10:43)
--- NOTE | 2016-08-18 11:29 | Progress Note ---
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 Who presented with hematemesis. He was found to have esophageal varices which were banded by gastroenterology. Esophageal varices Status post EGD on 08/17/2016, esophageal varices seen and banded. No active signs of bleeding at this time Continue octreotide drip and PPI Case was discussed with GI , their input appreciated -start clear liquid diet for now Acute blood loss anemia Due to esophageal varices Status post multiple transfusions, monitor H&H and keep hemoglobin above 8, to get another 2 units prbc today Liver cirrhosis/hep C virus/Chronic decompensated liver disease Has coagulopathy which is most likely due to decompensated liver disease. We' ll treat with vitamin K Coagulopathy due to liver cirrhosis Has received FFP, Vitamin K 10 mg subcutaneous 3 days, PT level improving Malnutrition, severe Albumin 1.8 Continue Megace, encourage balanced diet when improved, Clear liquids for now Acute kidney injury/vasomotor nephropathy/metabolic acidosis Received IV fluids and blood transfusion, improving Toxic metabolic encephalopathy likely due to percocet, which has now been dc obtain NH3 level to assess for hepatic encephalopathy, he states that he takes lactulose sometimes at home DVT prophylaxis SCDs in light of GI bleed The high probability of a clinically significant, sudden or life threatening deterioration of the [hematologic, renal, GI] system(s) required my full and direct attention, intervention and personal management. The aggregate critical care time was [33] minutes. This time is in addition to time spent performing reported procedures but includes the following: [] Data Review and interpretation [] Patient assessment and monitoring of vital signs [] Documentation [] Medication orders and management History Interval history: no further episodes of hematemesis, has been confused this am, RN reports that he got pain meds overnight Hospitalist Physical - Physical exam Narrative exam: General: Patient appears well in no distress, cachectic HEENT: MMM, EOMI cardiac: S1-S2 heard lungs: clear to auscultation, abdomen: soft, nontender, nondistended bowel sounds positive extremities: no edema clubbing or cyanosis Skin: no rash or lesion Neuro: no focal deficit, groggy, lethargic Psych: appropriate behavior and mood, cognition intact - Constitutional Vitals: Temp Pulse Resp BP Pulse Ox 99.4 F 96 H 15 117/59 99 08/18/16 04:31 08/18/16 01:10 08/18/16 01:10 08/18/16 01:10 08/18/16 01:10 General appearance: Present: no acute distress Results - Labs CBC & Chem 7: 08/18/16 07:51 08/18/16 02:50 Labs: Laboratory Last Values WBC 9.4 K/mm3 (4.5-11.0) 08/18/16 07:51 RBC 2.63 M/mm3 (3.65-5.03) L 08/18/16 07:51 Hgb 7.1 gm/dl (11.8-15.2) L 08/18/16 07:51 Hct 21.8 % (35.5-45.6) L 08/18/16 07:51 MCV 84 fl (84-94) 08/18/16 07:51 MCH 27 pg (28-32) L 08/18/16 07:51 MCHC 32 % (32-34) 08/18/16 07:51 RDW 16.6 % (13.2-15.2) H 08/18/16 07:51 Plt Count 106 K/mm3 (140-440) L 08/18/16 07:51 Lymph % (Auto) 12.3 % (13.4-35.0) L 08/18/16 07:51 [place] % (Auto) 8.5 % (0.0-7.3) H 08/18/16 07:51 Eos % (Auto) 1.3 % (0.0-4.3) 08/18/16 07:51 Baso % (Auto) 0.4 % (0.0-1.8) 08/18/16 07:51 Lymph # 1.2 K/mm3 (1.2-5.4) 08/18/16 07:51 [place] # 0.8 K/mm3 (0.0-0.8) 08/18/16 07:51 Eos # 0.1 K/mm3 (0.0-0.4) 08/18/16 07:51 Baso # 0.0 K/mm3 (0.0-0.1) 08/18/16 07:51 Seg Neutrophils % 77.5 % (40.0-70.0) H 08/18/16 07:51 Seg Neutrophils # 7.3 K/mm3 (1.8-7.7) 08/18/16 07:51 PT 21.3 Sec. (12.2-14.9) H 08/18/16 02:50 INR 1.85 (0.87-1.13) H 08/18/16 02:50 APTT 35.0 Sec. (24.2-36.6) 08/17/16 03:41 Sodium 140 mmol/L (137-145) 08/18/16 02:50 Potassium 4.6 mmol/L (3.6-5.0) 08/18/16 02:50 Chloride 108.4 mmol/L (98-107) H 08/18/16 02:50 Carbon Dioxide 16 mmol/L (22-30) L D 08/18/16 02:50 Anion Gap 20 mmol/L 08/18/16 02:50 BUN 45 mg/dL (9-20) H 08/18/16 02:50 Creatinine 1.3 mg/dL (0.8-1.5) 08/18/16 02:50 Estimated GFR > 60 ml/min 08/18/16 02:50 BUN/Creatinine Ratio 34.61 % 08/18/16 02:50 Glucose 102 mg/dL (75-100) H 08/18/16 02:50 Calcium 7.0 mg/dL (8.4-10.2) L 08/18/16 02:50 Total Bilirubin 0.90 mg/dL (0.1-1.2) 08/17/16 02:17 AST 39 units/L (5-40) 08/17/16 02:17 ALT 21 units/L (7-56) 08/17/16 02:17 Alkaline Phosphatase 41 units/L (35-129) 08/17/16 02:17 Total Protein 5.2 g/dL (6.3-8.2) L 08/17/16 02:17 Albumin 1.8 g/dL (3.9-5) L 08/17/16 02:17 Albumin/Globulin Ratio 0.5 % 08/17/16 02:17 Lipase 17 units/L (13-60) 08/17/16 02:17 Blood Type O POSITIVE 08/17/16 03:54 Antibody Screen TNR 08/17/16 03:54 KRISTIN Antibody Screen Negative 08/17/16 03:54 Crossmatch See Detail 08/17/16 03:54
[2016-08-18] MEDS ORDERED: CEPHULAC PO ONE (17:07)
[2016-08-18] MEDS: DESYREL PO SCH (22:45)
[2016-08-18] MEDS: VISTARIL PO SCH (22:45)
[2016-08-18] MEDS: REMERON PO SCH (22:45)
[2016-08-18] MEDS ORDERED: TYLENOL PO PRN (23:53)
[2016-08-19 05:17] LABS: Basophils % (Auto) 0.6 % (0.0-1.8); Eosinophils % (Auto) 2.7 % (0.0-4.3); Hematocrit 26.5 % (35.5-45.6); Hemoglobin 8.8 gm/dl (11.8-15.2); Mean Corpuscular HGB Conc 33 % (32-34); Mean Corpuscular Hemoglobin 27 pg (28-32); Mean Corpuscular Volume 82 fl (84-94); Platelet Count 92 K/mm3 (140-440); Red Blood Count 3.24 M/mm3 (3.65-5.03); White Blood Count 7.1 K/mm3 (4.5-11.0)
[2016-08-19 05:29] LABS: INR 1.52 (0.87-1.13)
[2016-08-19 05:32] LABS: Anion Gap 13 mmol/L; BUN/Creatinine Ratio 29.09; Blood Urea Nitrogen 32 mg/dL (9-20); Carbon Dioxide 20 mmol/L (22-30); Chloride 114.9 mmol/L (98-107); Glucose 102 mg/dL (75-100); Potassium 3.8 mmol/L (3.6-5.0); Sodium 144 mmol/L (137-145)
--- NOTE | 2016-08-19 09:29 | Progress Note ---
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 Who presented with hematemesis. He was found to have esophageal varices which were banded by gastroenterology. Esophageal varices Status post EGD on 08/17/2016, esophageal varices w/ stigmata of bleeding- 4 variceal bands applied seen and banded. No active signs of bleeding at this time Continue octreotide drip and PPI Case was discussed with GI , their input appreciated -ADAT Acute blood loss anemia Due to esophageal varices Status post multiple transfusions, Hg 4.9 on arrival, now up to 8.8 Liver cirrhosis/hep C virus/Chronic decompensated liver disease Has coagulopathy which is most likely due to decompensated liver disease. 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 liver cirrhosis Has received FFP, Vitamin K 10 mg subcutaneous 3 days, PT level improving INR went from 2.1 to 1.5 Malnutrition, severe Albumin 1.8 Continue Megace, encourage balanced diet when improved, Clear liquids for now Acute kidney injury/vasomotor nephropathy/metabolic acidosis Received IV fluids and blood transfusion, improving hepatic encephalopathy Ammonia level elevated, continue lactulose NH3 levels, 92 -> 125 DVT prophylaxis SCDs in light of GI bleed History Interval history: no further episodes of hematemesis, still lethargic and somewhat somnolent Hospitalist Physical - Physical exam Narrative exam: General: Patient appears well in no distress, cachectic HEENT: MMM, EOMI cardiac: S1-S2 heard lungs: clear to auscultation, abdomen: soft, nontender, nondistended bowel sounds positive extremities: no edema clubbing or cyanosis Skin: no rash or lesion Neuro: no focal deficit, groggy, lethargic Psych: appropriate behavior and mood, cognition intact - Constitutional Vitals: Temp Pulse Resp BP Pulse Ox 99.2 F 78 18 158/94 100 08/19/16 01:45 08/19/16 01:45 08/19/16 01:45 08/19/16 01:45 08/19/16 07:51 General appearance: Present: no acute distress Results - Labs CBC & Chem 7: 08/19/16 04:52 08/19/16 04:52 Labs: Laboratory Last Values WBC 7.1 K/mm3 (4.5-11.0) 08/19/16 04:52 RBC 3.24 M/mm3 (3.65-5.03) L 08/19/16 04:52 Hgb 8.8 gm/dl (11.8-15.2) L 08/19/16 04:52 Hct 26.5 % (35.5-45.6) L 08/19/16 04:52 MCV 82 fl (84-94) L 08/19/16 04:52 MCH 27 pg (28-32) L 08/19/16 04:52 MCHC 33 % (32-34) 08/19/16 04:52 RDW 17.0 % (13.2-15.2) H 08/19/16 04:52 Plt Count 92 K/mm3 (140-440) L 08/19/16 04:52 Lymph % (Auto) 16.4 % (13.4-35.0) 08/19/16 04:52 Moody % (Auto) 9.1 % (0.0-7.3) H 08/19/16 04:52 Eos % (Auto) 2.7 % (0.0-4.3) 08/19/16 04:52 Baso % (Auto) 0.6 % (0.0-1.8) 08/19/16 04:52 Lymph # 1.2 K/mm3 (1.2-5.4) 08/19/16 04:52 Moody # 0.6 K/mm3 (0.0-0.8) 08/19/16 04:52 Eos # 0.2 K/mm3 (0.0-0.4) 08/19/16 04:52 Baso # 0.0 K/mm3 (0.0-0.1) 08/19/16 04:52 Seg Neutrophils % 71.2 % (40.0-70.0) H 08/19/16 04:52 Seg Neutrophils # 5.0 K/mm3 (1.8-7.7) 08/19/16 04:52 PT 18.3 Sec. (12.2-14.9) H 08/19/16 04:52 INR 1.52 (0.87-1.13) H 08/19/16 04:52 APTT 35.0 Sec. (24.2-36.6) 08/17/16 03:41 Sodium 144 mmol/L (137-145) 08/19/16 04:52 Potassium 3.8 mmol/L (3.6-5.0) 08/19/16 04:52 Chloride 114.9 mmol/L (98-107) H 08/19/16 04:52 Carbon Dioxide 20 mmol/L (22-30) L 08/19/16 04:52 Anion Gap 13 mmol/L 08/19/16 04:52 BUN 32 mg/dL (9-20) H 08/19/16 04:52 Creatinine 1.1 mg/dL (0.8-1.5) 08/19/16 04:52 Estimated GFR > 60 ml/min 08/19/16 04:52 BUN/Creatinine Ratio 29.09 % 08/19/16 04:52 Glucose 102 mg/dL (75-100) H 08/19/16 04:52 Calcium 7.0 mg/dL (8.4-10.2) L 08/19/16 04:52 Total Bilirubin 0.90 mg/dL (0.1-1.2) 08/17/16 02:17 AST 39 units/L (5-40) 08/17/16 02:17 ALT 21 units/L (7-56) 08/17/16 02:17 Alkaline Phosphatase 41 units/L (35-129) 08/17/16 02:17 Ammonia 125.0 umol/L (25-60) H 08/19/16 04:52 Total Protein 5.2 g/dL (6.3-8.2) L 08/17/16 02:17 Albumin 1.8 g/dL (3.9-5) L 08/17/16 02:17 Albumin/Globulin Ratio 0.5 % 08/17/16 02:17 Lipase 17 units/L (13-60) 08/17/16 02:17 Blood Type O POSITIVE 08/17/16 03:54 Antibody Screen TNR 08/17/16 03:54 KRISTIN Antibody Screen Negative 08/17/16 03:54 Crossmatch See Detail 08/17/16 03:54
[2016-08-19] MEDS: ZOLOFT PO SCH (10:23)
[2016-08-19] MEDS: PEPCID IV SCH (10:23)
[2016-08-19] MEDS: FOLVITE PO SCH (10:23)
[2016-08-19] MEDS: VITAMIN K (ADULT ONLY) SUB-Q SCH (10:23)
[2016-08-19] MEDS ORDERED: CEPHULAC PO SCH (11:00)
[2016-08-19] MEDS: HABITROL TD SCH (13:04)
[2016-08-19] MEDS: PROTONIX PO SCH (13:05)
[2016-08-19] MEDS: MEGACE PO SCH (13:05)
--- NOTE | 2016-08-19 13:19 | Progress Note ---
Assessment and Plan 56 y/o male with known Hep C, Cirrhosis, ascities now with Upper GI bleed, varices found and banded. 1. From a critical care standpoint, will sign off. CAll if questions or further help is needed. Subjective Date of service: 08/19/16 Principal diagnosis: hematemesis Interval history: Successful transfer out of ICU on yesterday. No further bleeding reported. Responded to 2 units appropriately. Objective - Constitutional Vitals: Vital Signs - 12hr 08/19/16 08/19/16 08/19/16 01:45 07:00 07:51 Temperature 99.2 F 98.4 F Pulse Rate 78 Pulse Rate [ 81 From Monitor] Respiratory 18 19 Rate Blood Pressure 158/94 Blood Pressure 140/78 [Right Arm] O2 Sat by Pulse 96 99 100 Oximetry - Labs CBC & Chem 7: 08/19/16 04:52 08/19/16 04:52 Labs: Abnormal lab results 08/18/16 08/19/16 08/19/16 Range/Units 15:08 04:52 04:52 RBC 3.24 L (3.65-5.03) M/mm3 Hgb 8.8 L (11.8-15.2) gm/dl Hct 26.5 L (35.5-45.6) % MCV 82 L (84-94) fl MCH 27 L (28-32) pg RDW 17.0 H (13.2-15.2) % Plt Count 92 L (140-440) K/mm3 [place] % (Auto) 9.1 H (0.0-7.3) % Seg Neutrophils % 71.2 H (40.0-70.0) % PT (12.2-14.9) Sec. INR (0.87-1.13) Chloride 114.9 H (98-107) mmol/L Carbon Dioxide 20 L (22-30) mmol/L BUN 32 H (9-20) mg/dL Glucose 102 H (75-100) mg/dL Calcium 7.0 L (8.4-10.2) mg/dL Ammonia 92.0 H (25-60) umol/L 08/19/16 08/19/16 Range/Units 04:52 04:52 RBC (3.65-5.03) M/mm3 Hgb (11.8-15.2) gm/dl Hct (35.5-45.6) % MCV (84-94) fl MCH (28-32) pg RDW (13.2-15.2) % Plt Count (140-440) K/mm3 [place] % (Auto) (0.0-7.3) % Seg Neutrophils % (40.0-70.0) % PT 18.3 H (12.2-14.9) Sec. INR 1.52 H (0.87-1.13) Chloride (98-107) mmol/L Carbon Dioxide (22-30) mmol/L BUN (9-20) mg/dL Glucose (75-100) mg/dL Calcium (8.4-10.2) mg/dL Ammonia 125.0 H (25-60) umol/L
[2016-08-19] MEDS: CEPHULAC PO SCH ×2 (16:45→21:32)
[2016-08-19] MEDS: CORGARD PO SCH (16:45)
--- NOTE | 2016-08-19 18:24 | Progress Note ---
Assessment and Plan 1. s/p variceal banding for variceal bleed - stable H/H. Adv diet, and if okay , D/C to home in AM. 2. Cirrhosis - due to HCV and EtOH. - pt to f/u in office in 2 wks - D/C on low Na+ diet, spironolactone 50 mg qd, and lactulose - will discuss B-blockers then, and repeat EGD in 6-8 wks Subjective Date of service: 08/19/16 Principal diagnosis: hematemesis Interval history: No more GI bleed Objective - Constitutional Vitals: Vital Signs - 12hr 08/19/16 08/19/16 08/19/16 07:00 07:51 16:00 Temperature 98.4 F 98.7 F Pulse Rate [ 81 76 From Monitor] Respiratory 19 18 Rate Blood Pressure 140/78 159/87 [Right Arm] O2 Sat by Pulse 99 100 Oximetry General appearance: Present: no acute distress - EENT Eyes: PERRL, EOM intact ENT: hearing intact - Respiratory Respiratory effort: normal - Gastrointestinal General gastrointestinal: Present: soft, non-tender - Labs CBC & Chem 7: 08/19/16 04:52 08/19/16 04:52 Labs: Abnormal lab results 08/19/16 08/19/16 08/19/16 Range/Units 04:52 04:52 04:52 RBC 3.24 L (3.65-5.03) M/mm3 Hgb 8.8 L (11.8-15.2) gm/dl Hct 26.5 L (35.5-45.6) % MCV 82 L (84-94) fl MCH 27 L (28-32) pg RDW 17.0 H (13.2-15.2) % Plt Count 92 L (140-440) K/mm3 [place] % (Auto) 9.1 H (0.0-7.3) % Seg Neutrophils % 71.2 H (40.0-70.0) % PT 18.3 H (12.2-14.9) Sec. INR 1.52 H (0.87-1.13) Chloride 114.9 H (98-107) mmol/L Carbon Dioxide 20 L (22-30) mmol/L BUN 32 H (9-20) mg/dL Glucose 102 H (75-100) mg/dL Calcium 7.0 L (8.4-10.2) mg/dL Ammonia (25-60) umol/L 08/19/16 Range/Units 04:52 RBC (3.65-5.03) M/mm3 Hgb (11.8-15.2) gm/dl Hct (35.5-45.6) % MCV (84-94) fl MCH (28-32) pg RDW (13.2-15.2) % Plt Count (140-440) K/mm3 [place] % (Auto) (0.0-7.3) % Seg Neutrophils % (40.0-70.0) % PT (12.2-14.9) Sec. INR (0.87-1.13) Chloride (98-107) mmol/L Carbon Dioxide (22-30) mmol/L BUN (9-20) mg/dL Glucose (75-100) mg/dL Calcium (8.4-10.2) mg/dL Ammonia 125.0 H (25-60) umol/L
[2016-08-19] MEDS: DESYREL PO SCH (21:32)
[2016-08-19] MEDS: VISTARIL PO SCH (21:32)
[2016-08-19] MEDS: REMERON PO SCH (21:32)
[2016-08-20] MEDS: CEPHULAC PO SCH ×3 (04:57→18:34)
[2016-08-20 08:10] LABS: Basophils % (Auto) 0.7 % (0.0-1.8); Eosinophils % (Auto) 5.1 % (0.0-4.3); Hematocrit 29.1 % (35.5-45.6); Hemoglobin 9.5 gm/dl (11.8-15.2); Mean Corpuscular HGB Conc 33 % (32-34); Mean Corpuscular Hemoglobin 27 pg (28-32); Mean Corpuscular Volume 83 fl (84-94); Platelet Count 101 K/mm3 (140-440); Red Cell Distribution Width 17.2 % (13.2-15.2); White Blood Count 6.3 K/mm3 (4.5-11.0)
--- NOTE | 2016-08-20 08:12 | Discharge Summary ---
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 Who presented with hematemesis. He was found to have esophageal varices which were banded by gastroenterology. He was admitted to the ICU for acute blood loss anemia. He was treated with octreotide drip, IV fluids, blood transfusions he went on to have esophageal varices banded by gastroenterology. His medications were optimized. Esophageal varices, acute GI bleed Status post EGD on 08/17/2016, which showed esophageal varices w/ stigmata of bleeding- 4 variceal bands applied seen and banded. He received octreotide drip and PPI He was seen in conjunction with gastroenterology, his diet was restarted on advance as tolerated. Patient clinically improved and had no further episodes of bleeding He'll follow-up with gastrointestinal as an outpatient, he will need repeat EGD and banding in 4-6 weeks Acute blood loss anemia Due to esophageal varices He received multiple transfusions, Hg 4.9 on arrival, now up to 9.5, he had no further episodes of bleeding while in hospital Liver cirrhosis/hep C virus/Chronic decompensated liver disease Has coagulopathy which is most likely due to decompensated liver disease. He received Vitamin K, and lactulose aldactone was held due to DEVON, and it was restarted prior to discharge Portal htn He was started on a beta chema, his follow-up with gastroenterology as an outpatient. 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 liver cirrhosis he received FFP, and Vitamin K 10 mg subcutaneous 3 days, PT level improved after treatment Malnutrition, severe Albumin 1.8 Continued Megace, encouraged balanced diet when improved Acute kidney injury/vasomotor nephropathy/metabolic acidosis Received IV fluids and blood transfusion, after which it resolved hepatic encephalopathy Ammonia level was elevated, therefore he was treated with lactulose, and his mentation improved DVT prophylaxis SCDs in light of GI bleed Disposition: - TO HOME OR SELFCARE Time spent for discharge: 33 minutes Core Measure Documentation - Palliative Care Palliative Care/ Comfort Measures: Not Applicable - Core Measures Any of the following diagnoses?: none Exam - Constitutional Vitals: Temp Pulse Resp BP Pulse Ox 97.3 F L 61 20 151/82 100 08/19/16 23:10 08/19/16 23:10 08/19/16 23:10 08/19/16 23:10 08/19/16 23:10 General appearance: Present: no acute distress, well-nourished - EENT Eyes: Present: PERRL ENT: hearing intact, clear oral mucosa - Neck Neck: Present: supple, normal ROM - Respiratory Respiratory effort: normal Respiratory: bilateral: CTA - Cardiovascular Heart Sounds: Present: S1 & S2. Absent: rub, click - Extremities Extremities: pulses symmetrical, No edema Peripheral Pulses: within normal limits - Abdominal General gastrointestinal: Present: soft, non-tender, non-distended, normal bowel sounds Male genitourinary: Present: normal - Integumentary Integumentary: Present: clear, warm, dry - Musculoskeletal Musculoskeletal: gait normal, strength equal bilaterally - Psychiatric Psychiatric: appropriate mood/affect, intact judgment & insight - Neurologic Neurologic: CNII-XII intact, moves all extremities Plan Follow up with: PRIMARY CAREMD [Primary Care Provider] - 3-5 Days KRISTIN URBINA MD [Staff Physician] - 7 Days Forms: Accompanied Note Prescriptions: Lactulose [Cephulac] 10 gm PO BID #473 ml Nadolol [Corgard] 40 mg PO QDAY #60 tablet Pantoprazole [Protonix TAB] 40 mg PO QDAY #30 tablet Spironolactone [Aldactone] 50 mg PO QDAY #30 tablet
[2016-08-20 08:39] LABS: Anion Gap 14 mmol/L; BUN/Creatinine Ratio 15.45; Blood Urea Nitrogen 17 mg/dL (9-20); Calcium 7.2 mg/dL (8.4-10.2); Carbon Dioxide 17 mmol/L (22-30); Glucose 91 mg/dL (75-100); Potassium 3.5 mmol/L (3.6-5.0); Sodium 143 mmol/L (137-145)
[2016-08-20 09:02] LABS: INR 1.43 (0.87-1.13)
[2016-08-20] MEDS: HABITROL TD SCH (12:25)
[2016-08-20] MEDS: PROTONIX PO SCH (12:25)
[2016-08-20] MEDS: CORGARD PO SCH (12:26)
[2016-08-20] MEDS: FOLVITE PO SCH (12:26)
[2016-08-20] MEDS: PEPCID IV SCH (12:26)
--- NOTE | 2016-08-20 14:44 | Progress Note ---
Assessment and Plan 1. s/p variceal banding for variceal bleed - stable H/H. Adv diet, and if okay , D/C to home in AM. 2. Cirrhosis - due to HCV and EtOH. - pt to f/u in office in 2 wks - D/C on low Na+ diet, spironolactone 50 mg qd, and lactulose - will discuss B-blockers then, and repeat EGD in 6-8 wks Subjective Date of service: 08/20/16 Principal diagnosis: hematemesis Interval history: Pt somewhat groggy, but awake, appropriate, speaks clearly. Comprehends well. Was talking to his sister on the phone, and asked me to let her know what was happening. Subsequently thanked me for my marilyn talk. Objective - Constitutional Vitals: Vital Signs - 12hr 08/20/16 08:00 Temperature 99.0 F Pulse Rate [ 56 L From Monitor] Respiratory 18 Rate Blood Pressure 125/67 [Right Arm] O2 Sat by Pulse 99 Oximetry General appearance: Present: no acute distress - EENT Eyes: PERRL, EOM intact ENT: hearing intact - Respiratory Respiratory effort: normal - Gastrointestinal General gastrointestinal: Present: soft, non-tender - Labs CBC & Chem 7: 08/20/16 07:43 08/20/16 07:43 Labs: Abnormal lab results 08/20/16 08/20/16 08/20/16 Range/Units 07:43 07:43 07:43 RBC 3.50 L (3.65-5.03) M/mm3 Hgb 9.5 L (11.8-15.2) gm/dl Hct 29.1 L (35.5-45.6) % MCV 83 L (84-94) fl MCH 27 L (28-32) pg RDW 17.2 H (13.2-15.2) % Plt Count 101 L (140-440) K/mm3 [place] % (Auto) 9.8 H (0.0-7.3) % Eos % (Auto) 5.1 H (0.0-4.3) % PT 18.2 H (12.2-14.9) Sec. INR 1.43 H (0.87-1.13) Potassium 3.5 L (3.6-5.0) mmol/L Chloride 116.0 H (98-107) mmol/L Carbon Dioxide 17 L (22-30) mmol/L Calcium 7.2 L (8.4-10.2) mg/dL Ammonia (25-60) umol/L 08/20/16 Range/Units 07:43 RBC (3.65-5.03) M/mm3 Hgb (11.8-15.2) gm/dl Hct (35.5-45.6) % MCV (84-94) fl MCH (28-32) pg RDW (13.2-15.2) % Plt Count (140-440) K/mm3 [place] % (Auto) (0.0-7.3) % Eos % (Auto) (0.0-4.3) % PT (12.2-14.9) Sec. INR (0.87-1.13) Potassium (3.6-5.0) mmol/L Chloride (98-107) mmol/L Carbon Dioxide (22-30) mmol/L Calcium (8.4-10.2) mg/dL Ammonia 84.0 H (25-60) umol/L
[2016-08-20] MEDS: KCL 10MEQ/100ML 10 MEQ/100 ML BAG IV SCH ×4 (15:16→22:34)
[2016-08-20] MEDS: ZOLOFT PO SCH (15:22)
[2016-08-20] MEDS: MEGACE PO SCH (15:22)
[2016-08-20] MEDS: DESYREL PO SCH (21:30)
[2016-08-20] MEDS: REMERON PO SCH (21:30)
[2016-08-20] MEDS: VISTARIL PO SCH (21:30)
[2016-08-21] MEDS: CEPHULAC PO SCH ×3 (01:48→11:52)
[2016-08-21 05:39] LABS: Basophils % (Auto) 0.5 % (0.0-1.8); Eosinophils % (Auto) 5.7 % (0.0-4.3); Hemoglobin 9.2 gm/dl (11.8-15.2); Mean Corpuscular HGB Conc 33 % (32-34); Mean Corpuscular Hemoglobin 28 pg (28-32); Mean Corpuscular Volume 86 fl (84-94); Platelet Count 101 K/mm3 (140-440); Red Blood Count 3.27 M/mm3 (3.65-5.03); Red Cell Distribution Width 17.8 % (13.2-15.2); White Blood Count 6.8 K/mm3 (4.5-11.0)
[2016-08-21 05:54] LABS: INR 1.37 (0.87-1.13)
[2016-08-21 05:57] LABS: Anion Gap 16 mmol/L; Blood Urea Nitrogen 12 mg/dL (9-20); Carbon Dioxide 15 mmol/L (22-30); Chloride 113.4 mmol/L (98-107); Glucose 120 mg/dL (75-100); Potassium 3.8 mmol/L (3.6-5.0); Sodium 141 mmol/L (137-145)
--- NOTE | 2016-08-21 08:43 | Gastroenterology Progress Note ---
Assessment and Plan GI bleed: s/p variceal treatment with banding - for outpt repeat egd 3-[address] Sanabria Liver: pt oriented this am - otherwise stable fro d/c from GI standpoint - will sign off, call if needed Subjective Date of service: 08/21/16 Principal diagnosis: hematemesis Interval history: - no GI issues overnight Objective - Constitutional Vitals: Temp Pulse Resp BP Pulse Ox 99.5 F 65 19 115/74 100 08/21/16 07:00 08/21/16 07:00 08/21/16 07:00 08/21/16 07:00 08/21/16 07:00 General appearance: no acute distress - EENT Eyes: PERRL - Respiratory Respiratory: bilateral: CTA - Cardiovascular Rhythm: regular Heart Sounds: Present: S1 & S2 - Labs CBC & Chem 7: 08/21/16 05:18 08/21/16 05:18 Labs: Laboratory Results - last 24 hr 08/20/16 08/21/16 08/21/16 07:43 05:18 05:18 WBC 6.8 RBC 3.27 L Hgb 9.2 L Hct 28.0 L MCV 86 D MCH 28 MCHC 33 RDW 17.8 H Plt Count 101 L Lymph % (Auto) 14.8 [place] % (Auto) 10.3 H Eos % (Auto) 5.7 H Baso % (Auto) 0.5 Lymph # 1.0 L Carson # 0.7 Eos # 0.4 Baso # 0.0 Seg Neutrophils % 68.7 Seg Neutrophils # 4.7 PT 18.2 H INR 1.43 H Sodium 141 Potassium 3.8 Chloride 113.4 H Carbon Dioxide 15 L Anion Gap 16 BUN 12 Creatinine 1.0 Estimated GFR > 60 BUN/Creatinine Ratio 12.00 Glucose 120 H Calcium 7.0 L Ammonia 08/21/16 08/21/16 05:18 05:18 WBC RBC Hgb Hct MCV MCH MCHC RDW Plt Count Lymph % (Auto) [place] % (Auto) Eos % (Auto) Baso % (Auto) Lymph # Carson # Eos # Baso # Seg Neutrophils % Seg Neutrophils # PT 17.6 H INR 1.37 H Sodium Potassium Chloride Carbon Dioxide Anion Gap BUN Creatinine Estimated GFR BUN/Creatinine Ratio Glucose Calcium Ammonia 131.0 H
[2016-08-21] MEDS: CORGARD PO SCH (11:51)
[2016-08-21] MEDS: PROTONIX PO SCH (11:51)
[2016-08-21] MEDS: FOLVITE PO SCH (11:53)
[2016-08-21] MEDS: ZOLOFT PO SCH (11:53)
--- NOTE | 2016-08-21 12:50 | Progress Note ---
Hospitalist Physical - Constitutional Vitals: Temp Pulse Resp BP Pulse Ox 99.5 F 65 19 115/74 100 08/21/16 07:00 08/21/16 11:51 08/21/16 07:00 08/21/16 11:51 08/21/16 07:00 General appearance: Present: no acute distress Results - Labs CBC & Chem 7: 08/21/16 05:18 08/21/16 05:18 Labs: Laboratory Last Values WBC 6.8 K/mm3 (4.5-11.0) 08/21/16 05:18 RBC 3.27 M/mm3 (3.65-5.03) L 08/21/16 05:18 Hgb 9.2 gm/dl (11.8-15.2) L 08/21/16 05:18 Hct 28.0 % (35.5-45.6) L 08/21/16 05:18 MCV 86 fl (84-94) D 08/21/16 05:18 MCH 28 pg (28-32) 08/21/16 05:18 MCHC 33 % (32-34) 08/21/16 05:18 RDW 17.8 % (13.2-15.2) H 08/21/16 05:18 Plt Count 101 K/mm3 (140-440) L 08/21/16 05:18 Lymph % (Auto) 14.8 % (13.4-35.0) 08/21/16 05:18 [place] % (Auto) 10.3 % (0.0-7.3) H 08/21/16 05:18 Eos % (Auto) 5.7 % (0.0-4.3) H 08/21/16 05:18 Baso % (Auto) 0.5 % (0.0-1.8) 08/21/16 05:18 Lymph # 1.0 K/mm3 (1.2-5.4) L 08/21/16 05:18 [place] # 0.7 K/mm3 (0.0-0.8) 08/21/16 05:18 Eos # 0.4 K/mm3 (0.0-0.4) 08/21/16 05:18 Baso # 0.0 K/mm3 (0.0-0.1) 08/21/16 05:18 Seg Neutrophils % 68.7 % (40.0-70.0) 08/21/16 05:18 Seg Neutrophils # 4.7 K/mm3 (1.8-7.7) 08/21/16 05:18 PT 17.6 Sec. (12.2-14.9) H 08/21/16 05:18 INR 1.37 (0.87-1.13) H 08/21/16 05:18 APTT 35.0 Sec. (24.2-36.6) 08/17/16 03:41 Sodium 141 mmol/L (137-145) 08/21/16 05:18 Potassium 3.8 mmol/L (3.6-5.0) 08/21/16 05:18 Chloride 113.4 mmol/L (98-107) H 08/21/16 05:18 Carbon Dioxide 15 mmol/L (22-30) L 08/21/16 05:18 Anion Gap 16 mmol/L 08/21/16 05:18 BUN 12 mg/dL (9-20) 08/21/16 05:18 Creatinine 1.0 mg/dL (0.8-1.5) 08/21/16 05:18 Estimated GFR > 60 ml/min 08/21/16 05:18 BUN/Creatinine Ratio 12.00 % 08/21/16 05:18 Glucose 120 mg/dL (75-100) H 08/21/16 05:18 Calcium 7.0 mg/dL (8.4-10.2) L 08/21/16 05:18 Total Bilirubin 0.90 mg/dL (0.1-1.2) 08/17/16 02:17 AST 39 units/L (5-40) 08/17/16 02:17 ALT 21 units/L (7-56) 08/17/16 02:17 Alkaline Phosphatase 41 units/L (35-129) 08/17/16 02:17 Ammonia 131.0 umol/L (25-60) H 08/21/16 05:18 Total Protein 5.2 g/dL (6.3-8.2) L 08/17/16 02:17 Albumin 1.8 g/dL (3.9-5) L 08/17/16 02:17 Albumin/Globulin Ratio 0.5 % 08/17/16 02:17 Lipase 17 units/L (13-60) 08/17/16 02:17 Blood Type O POSITIVE 08/17/16 03:54 Antibody Screen TNR 08/17/16 03:54 KRISTIN Antibody Screen Negative 08/17/16 03:54 Crossmatch See Detail 08/17/16 03:54
[2016-08-21] MEDS: HABITROL TD SCH (13:59)
[2016-08-21] MEDS: MEGACE PO SCH (14:06)
--- NOTE | 2016-08-21 15:36 | Discharge Summary ---
Providers - Providers Date of Admission: 08/17/16 05:05 Date of discharge: 08/21/16 Attending physician: NAYELY REGALADO MD 08/17/16 05:07 Consult to Physician [CONS] Routine Consulting Provider: KRISTIN URBINA Reason For Exam: G.I BLEED Place consult to:: SEE CONSULT ALREADY ORDERED Notified:: AND COMPLETED FOR SAME GI CONSULT AND DOCTOR Primary care physician: [employer]ER Hospitalization Condition: Serious Hospital course: See Discharge summary by Dr Bautista MARTÍNEZ Disposition: DC-01 TO HOME OR SELFCARE Core Measure Documentation - Palliative Care Palliative Care/ Comfort Measures: Not Applicable - Core Measures Any of the following diagnoses?: none Exam - Constitutional Vitals: Temp Pulse Resp BP Pulse Ox 99.5 F 65 19 115/74 100 08/21/16 07:00 08/21/16 11:51 08/21/16 07:00 08/21/16 11:51 08/21/16 07:00 General appearance: Present: no acute distress, well-nourished - EENT Eyes: Present: PERRL ENT: hearing intact, clear oral mucosa - Neck Neck: Present: supple, normal ROM - Respiratory Respiratory effort: normal Respiratory: bilateral: CTA - Cardiovascular Heart Sounds: Present: S1 & S2. Absent: rub, click - Extremities Extremities: pulses symmetrical, No edema Peripheral Pulses: within normal limits - Abdominal General gastrointestinal: Present: soft, non-tender, non-distended, normal bowel sounds Male genitourinary: Present: normal - Integumentary Integumentary: Present: clear, warm, dry - Musculoskeletal Musculoskeletal: gait normal, strength equal bilaterally - Psychiatric Psychiatric: appropriate mood/affect, intact judgment & insight - Neurologic Neurologic: CNII-XII intact, moves all extremities Plan Activity: no restrictions Diet: low fat Follow up with: KRISTIN URBINA MD [Staff Physician] - 7 Days PRIMARY CAREMD [Primary Care Provider] - 3-5 Days Forms: Accompanied Note Prescriptions: Lactulose [Cephulac] 10 gm PO BID #473 ml Nadolol [Corgard] 40 mg PO QDAY #60 tablet Pantoprazole [Protonix TAB] 40 mg PO QDAY #30 tablet Spironolactone [Aldactone] 50 mg PO QDAY #30 tablet
[2016-08-21 16:39] VITALS: BP 120/79
== END 2016-08-21 17:30 | disposition home or self-care (01) | DRG 432 ==
LOC: ED 01:25 → CC1 05:05 → 3A 08-18 13:52
PROVIDERS: ADMIT Internal Medicine; ATTEND Internal Medicine
PROC: 06L34CZ Occlusion of Esophageal Vein with Extraluminal Device, Percutaneous Endoscopic Approach (ICD-10-PCS; principal; 2016-08-17)
PROC: 30233N1 Transfusion of Nonautologous Red Blood Cells into Peripheral Vein, Percutaneous Approach (ICD-10-PCS; 2016-08-17)
PROC: 30233K1 Transfusion of Nonautologous Frozen Plasma into Peripheral Vein, Percutaneous Approach (ICD-10-PCS; 2016-08-17)
DX: K74.69 Other cirrhosis of liver (principal); N17.0 Acute kidney failure with tubular necrosis; E43 Unspecified severe protein-calorie malnutrition; G92 Toxic encephalopathy; I85.11 Secondary esophageal varices with bleeding; D62 Acute posthemorrhagic anemia; D68.9 Coagulation defect, unspecified; R18.8 Other ascites; E87.2 Acidosis; K76.6 Portal hypertension; F10.10 Alcohol abuse, uncomplicated; I10 Essential (primary) hypertension; F17.200 Nicotine dependence, unspecified, uncomplicated; Z86.73 Personal history of transient ischemic attack (TIA), and cerebral infarction without residual deficits; Z88.0 Allergy status to penicillin; Z68.24 Body mass index [BMI] 24.0-24.9, adult; K72.90 Hepatic failure, unspecified without coma
CPT/HCPCS: 36415; 80048; 80053; 82140; 82271; 83690; 85014; 85018; 85025; 85610; 85730; 86850; 86900; 86901; 86920; 93005; 93010; C9113; J2354; J2405; J2704; J3430; J3480; J7030; J7040; P9016; P9017; Q0177